=== PATIENT | female | born 1960 | race Caucasian/White ===

== ENCOUNTER 2019-04-30 13:10 | Inpatient (IN) | payer OTHER ==
[2019-04-30 17:03] LABS: ADD MAN DIFF? NO
[2019-04-30 17:06] LABS: WHITE BLOOD COUNT 12.9 10^3/ul (4.8-10.8)
[2019-04-30 17:06] LABS: BASOPHILS % 0.3 % (0.0-2.0); EOSINOPHILS # 0.2 10^3/ul (0.0-0.5); EOSINOPHILS % 1.8 % (0.0-7.0); HEMATOCRIT 38.8 % (37.0-47.0); HEMOGLOBIN 13.3 g/dl (12.0-16.0); LYMPHOCYTES # 2.9 10^3/ul (0.8-2.9); LYMPHOCYTES % 22.8 % (15.0-51.0); MEAN CORPUSCULAR HEMOGLOBIN 29.6 pg (29.0-33.0); MEAN CORPUSCULAR HGB CONC 34.3 g/dl (32.0-37.0); MEAN CORPUSCULAR VOLUME 86.4 fl (82.0-101.0); MEAN PLATELET VOLUME 10.5 fl (7.4-10.4); MONOCYTE # 0.7 10^3/ul (0.3-0.9); MONOCYTES % 5.4 % (0.0-11.0); NEUTROPHIL # 8.9 10^3/ul (1.6-7.5); NEUTROPHILS % 69.4 % (39.0-77.0); PLATELET COUNT 356 10^3/UL (140-415); RED BLOOD COUNT 4.49 10^6/ul (4.20-5.40); RED CELL DISTRIBUTION WIDTH 13.8 % (11.5-14.5)
[2019-04-30] MEDS: morphine 4 MG/ML VIAL IV (17:11)
[2019-04-30] MEDS: CEFEPIME 2GM/50 ML (PMX) 50 ML IVPB (17:12)
[2019-04-30] MEDS: ACETAMINOPHEN 325 MG TAB PO (17:12)
[2019-04-30] MEDS: SODIUM CHLORIDE 0.9% 1L BAG IV* (17:13)
[2019-04-30 17:24] LABS: ALANINE AMINOTRANSFERASE 13 IU/L (13-69); ALBUMIN 4.1 g/dl (3.3-4.9); ALBUMIN/GLOBULIN RATIO 1.13; ALKALINE PHOSPHATASE 110 IU/L (42-121); ANION GAP 9 (5-13); ASPARTATE AMINO TRANSFERASE 22 IU/L (15-46); BILIRUBIN,INDIRECT 0.6 mg/dl (0-1.1); BILIRUBIN,TOTAL 0.6 mg/dl (0.2-1.3); BLOOD UREA NITROGEN 18 mg/dl (7-20); CALCIUM 9.3 mg/dl (8.4-10.2); CARBON DIOXIDE 27 mmol/L (21-31); CHLORIDE 103 mmol/L (97-110); Estimated GFR > 60 mL/min (>60); GLUCOSE 148 mg/dl (70-220); POTASSIUM 3.1 mmol/L (3.5-5.1); SODIUM 139 mmol/L (135-144); TOTAL PROTEIN 7.7 g/dl (6.1-8.1)
[2019-04-30 17:26] LABS: INR 0.94; PARTIAL THROMBOPLASTIN TIME 29.1 Sec (23.0-35.0); PROTIME 12.7 Sec (11.9-14.9)
[2019-04-30 17:35] LABS: TROPONIN-I < 0.012 ng/ml (0.000-0.120)
[2019-04-30 17:57] LABS: C-REACTIVE PROTEIN 4.9 mg/dl (0.0-0.9)
[2019-04-30 18:55] LABS: ERYTHROCYTE SEDIMENTATION RATE 37 mm/Hr (0-30)
[2019-04-30] MEDS ORDERED: NACL 0.9% 3 ML SYG IV (19:00)
[2019-04-30 19:24] LABS: LACTIC ACID 1.1 mmol/L (0.5-2.0)
[2019-04-30 19:30] LABS: URINE BLOOD (Dip) POC Negative (NEGATIVE); URINE GLUCOSE (Dip) POC Negative (NEGATIVE); URINE KETONES (Dip) POC Negative (NEGATIVE); URINE LEUKOCYTE EST (Dip) POC 1+ (NEGATIVE); URINE NITRITE (Dip) POC Negative (NEGATIVE); URINE TOTAL PROTEIN POC Negative (NEGATIVE)
[2019-04-30] MEDS ORDERED: ACETAMINOPHEN 325 MG TAB PO (19:30)
[2019-04-30] MEDS ORDERED: ONDANSETRON 4 MG INJ IV (19:30)
[2019-04-30 19:59] LABS: ADD UMIC YES; UR ASCORBIC ACID NEGATIVE (NEGATIVE); UR BILIRUBIN (Dip) NEGATIVE (NEGATIVE); UR BLOOD (Dip) NEGATIVE (NEGATIVE); UR CLARITY CLEAR (CLEAR); UR COLOR YELLOW (YELLOW); UR GLUCOSE (Dip) NEGATIVE (NEGATIVE); UR KETONES (Dip) NEGATIVE (NEGATIVE); UR LEUKOCYTE ESTERASE (Dip) 1+ Leu/ul (NEGATIVE); UR NITRITE (Dip) NEGATIVE (NEGATIVE); UR RBC 2 /HPF (0-5); UR SPECIFIC GRAVITY (Dip) 1.008 (1.003-1.030); UR SQUAMOUS EPITHELIAL CELL FEW /HPF (FEW); UR TOTAL PROTEIN (Dip) NEGATIVE (NEGATIVE); UR UROBILINOGEN (Dip) NEGATIVE (NEGATIVE); UR WBC 2 /HPF (0-5)
[2019-04-30] MEDS: POTASSIUM CHLORIDE 20 MEQ POWDER FOR ORAL SOLN PO (20:32)
[2019-04-30] MEDS: KETOROLAC 30 MG INJ IV (20:32)
[2019-04-30] MEDS: SOD CHLORIDE 0.9% 1,000 ML IV (20:32)
[2019-04-30 22:05] LABS: LACTIC ACID 1.5 mmol/L (0.5-2.0)
[2019-04-30] MEDS: ONDANSETRON 4 MG INJ IV (22:28)
[2019-05-01] MEDS ORDERED: hydrALAzine 20 MG INJ IV (04:00)
[2019-05-01] MEDS ORDERED: traMADol 50 MG TAB PO (04:00)
[2019-05-01] MEDS: CEFTRIAXONE 1 GM/50 ML (PMX) 50 ML IVPB (04:41)
[2019-05-01 08:10] LABS: ADD MAN DIFF? NO
[2019-05-01 08:19] LABS: WHITE BLOOD COUNT 11.4 10^3/ul (4.8-10.8)
[2019-05-01 08:19] LABS: BASOPHILS % 0.3 % (0.0-2.0); EOSINOPHILS # 0.2 10^3/ul (0.0-0.5); EOSINOPHILS % 1.9 % (0.0-7.0); HEMATOCRIT 33.8 % (37.0-47.0); HEMOGLOBIN 11.4 g/dl (12.0-16.0); LYMPHOCYTES # 2.4 10^3/ul (0.8-2.9); MEAN CORPUSCULAR HEMOGLOBIN 29.2 pg (29.0-33.0); MEAN CORPUSCULAR HGB CONC 33.7 g/dl (32.0-37.0); MEAN CORPUSCULAR VOLUME 86.4 fl (82.0-101.0); MONOCYTE # 0.9 10^3/ul (0.3-0.9); MONOCYTES % 7.6 % (0.0-11.0); NEUTROPHIL # 7.8 10^3/ul (1.6-7.5); NEUTROPHILS % 68.8 % (39.0-77.0); PLATELET COUNT 298 10^3/UL (140-415); RED BLOOD COUNT 3.91 10^6/ul (4.20-5.40); RED CELL DISTRIBUTION WIDTH 14.1 % (11.5-14.5)
[2019-05-01 08:38] LABS: ALANINE AMINOTRANSFERASE 21 IU/L (13-69); ALKALINE PHOSPHATASE 75 IU/L (42-121); ANION GAP 8 (5-13); ASPARTATE AMINO TRANSFERASE 15 IU/L (15-46); BILIRUBIN,INDIRECT 0.7 mg/dl (0-1.1); BILIRUBIN,TOTAL 0.7 mg/dl (0.2-1.3); BLOOD UREA NITROGEN 11 mg/dl (7-20); CALCIUM 8.4 mg/dl (8.4-10.2); CARBON DIOXIDE 24 mmol/L (21-31); CHLORIDE 111 mmol/L (97-110); CREATININE 0.61 mg/dl (0.44-1.00); Estimated GFR > 60 mL/min (>60); GLUCOSE 87 mg/dl (70-220); MAGNESIUM 1.7 mg/dl (1.7-2.5); POTASSIUM 3.5 mmol/L (3.5-5.1); SODIUM 143 mmol/L (135-144)
[2019-05-01] MEDS: ACETAMINOPHEN 325 MG TAB PO (09:11)
[2019-05-01] MEDS: HYDROCODONE/APAP (5/325) TAB PO ×2 (09:11→23:03)
[2019-05-01] MEDS: HYDROCHLOROTHIAZIDE 25 MG TAB PO (09:11)
[2019-05-01] MEDS: FAMOTIDINE 20 MG INJ IV (09:11)
[2019-05-01 11:10] LABS: HEMOGLOBIN A1C 5.7 % (0-5.9)
[2019-05-01] MEDS ORDERED: METHOTREXATE 2.5 MG TAB PO (17:00)
[2019-05-01] MEDS: morphine 2 MG INJ IV (20:06)
[2019-05-02] MEDS: CEFTRIAXONE 1 GM/50 ML (PMX) 50 ML IVPB (03:39)
[2019-05-02 06:08] LABS: ADD MAN DIFF? NO
[2019-05-02 06:10] LABS: BASOPHILS % 0.6 % (0.0-2.0); EOSINOPHILS # 0.3 10^3/ul (0.0-0.5); EOSINOPHILS % 3.7 % (0.0-7.0); HEMATOCRIT 32.9 % (37.0-47.0); HEMOGLOBIN 11.3 g/dl (12.0-16.0); LYMPHOCYTES # 2.9 10^3/ul (0.8-2.9); LYMPHOCYTES % 40.7 % (15.0-51.0); MEAN CORPUSCULAR HGB CONC 34.3 g/dl (32.0-37.0); MEAN CORPUSCULAR VOLUME 87.3 fl (82.0-101.0); MEAN PLATELET VOLUME 10.3 fl (7.4-10.4); MONOCYTE # 0.6 10^3/ul (0.3-0.9); MONOCYTES % 8.8 % (0.0-11.0); NEUTROPHIL # 3.2 10^3/ul (1.6-7.5); NEUTROPHILS % 45.9 % (39.0-77.0); PLATELET COUNT 297 10^3/UL (140-415); RED BLOOD COUNT 3.77 10^6/ul (4.20-5.40); RED CELL DISTRIBUTION WIDTH 13.9 % (11.5-14.5)
[2019-05-02 06:10] LABS: WHITE BLOOD COUNT 7.1 10^3/ul (4.8-10.8)
[2019-05-02 06:32] LABS: ANION GAP 6 (5-13); BLOOD UREA NITROGEN 8 mg/dl (7-20); CALCIUM 8.7 mg/dl (8.4-10.2); CARBON DIOXIDE 28 mmol/L (21-31); CHLORIDE 106 mmol/L (97-110); CREATININE 0.58 mg/dl (0.44-1.00); Estimated GFR > 60 mL/min (>60); GLUCOSE 96 mg/dl (70-220); MAGNESIUM 1.9 mg/dl (1.7-2.5); PHOSPHORUS 3.7 mg/dl (2.5-4.9); POTASSIUM 3.5 mmol/L (3.5-5.1); SODIUM 140 mmol/L (135-144)
[2019-05-02] MEDS: HYDROCHLOROTHIAZIDE 25 MG TAB PO (08:51)
[2019-05-02] MEDS: FAMOTIDINE 20 MG TAB PO (08:51)
[2019-05-02] MEDS: HYDROCODONE/APAP (5/325) TAB PO (10:37)
[2019-05-07] MEDS ORDERED: METHOTREXATE 2.5 MG TAB PO (09:00)
== END 2019-05-02 14:00 | disposition home or self-care (01) | DRG 872 ==
LOC: E/R 13:10 → PP2 19:01
PROVIDERS: Hospitalist
DX: A41.9 Sepsis, unspecified organism (principal); N39.0 Urinary tract infection, site not specified; B34.9 Viral infection, unspecified; K29.70 Gastritis, unspecified, without bleeding; M06.9 Rheumatoid arthritis, unspecified; I10 Essential (primary) hypertension
CPT/HCPCS: 36415; 71045; 80048; 80053; 81001; 81003; 83036; 83605; 83735; 84100; 84443; 84484; 85025; 85610; 85651; 85730; 86140; 87040-91; 87086; 93005; 96374; 96375; 99217; 99285-25